=== PATIENT | male | born 1980 | race Caucasian/White ===

== ENCOUNTER → 2022-11-10 | Outpatient (CLI) | payer OTHER ==
[~2022-11-10] MED LIST: ACETAMINOPHEN 1000 MG/100 ML 0 ML IV ONE; LACTATED RINGER'S 1,000 ML ONE; NORCO PO
== END | disposition home or self-care (01) ==
LOC: OR 11-03 06:17 → EDBD 11-03 08:00 → OR 05:44 → RAD 07:55 → EDSTATUS 08:00
PROVIDERS: ATTEND Otolaryngology Otolaryngology/Facial Plastic Surgery
DX: J34.2 Deviated nasal septum (principal); Z53.8 Procedure and treatment not carried out for other reasons

== ENCOUNTER → 2022-12-01 | Day surgery (SDC) | payer OTHER ==
[~2022-12-01] MED LIST changes: -ACETAMINOPHEN 1000 MG/100 ML 0 ML IV ONE; +ACETAMINOPHEN 1000 MG/100 ML 100 ML IV ONE; +ASPIRIN EC81 MG PO; +DEXAMETHASONE SOD PHOS 10 MG/1 ML VIAL ONE; +EPINEPHRINE HCL 1:1000 1ML 1 MG/ML AMP ONE; +FENTANYL CITRATE/PF 100MCG/2 ML INJ ONE; +GLYCOPYRROLATE INJ 0.2 MG/ML VIAL ONE; +LIDOCAINE 2% /EPINEPHRINE 20 ML SDV INJ ONE; +LIDOCAINE HCL 2% LOCAL INJ 5 ML SDV VIAL INJ ONE; +MIDAZOLAM HCL 2 MG/2 ML VIAL ONE; +NEOSTIGMINE 1 MG/ML 10ML VIAL ONE; +ONDANSETRON HCL INJ 2MG/ML 2ML 2 MG/ML VIAL ONE; +POVIDONE IODINE 0.05% 0.05 % ML PO ONE; +PROPOFOL IV EMULSION 10 MG/ML 20 ML VIAL ONE; +ROCURONIUM BROMIDE 10 MG/ML 5ML VIAL IV ONE
[2022-12-01 09:26] VITALS: BP 133/86; PULSE 71; RESP 18; O2SAT 98
== END | disposition home or self-care (01) ==
LOC: OR 06:02
PROVIDERS: ATTEND Otolaryngology Otolaryngology/Facial Plastic Surgery
DX: J34.2 Deviated nasal septum (principal); S00.83XA Contusion of other part of head, initial encounter; J34.89 Other specified disorders of nose and nasal sinuses; V24.49XA Other motorcycle driver injured in collision with heavy transport vehicle or bus in traffic accident, initial encounter; Y93.I9 Activity, other involving external motion; Y92.410 Unspecified street and highway as the place of occurrence of the external cause; Z79.82 Long term (current) use of aspirin; Z79.891 Long term (current) use of opiate analgesic
CPT/HCPCS: 88300; 88304; 88311; 93005; J0171; J1100; J2001; J2250; J2405; J2710